=== PATIENT | female | born 1980 | race Two or more races ===

== ENCOUNTER → 2017-02-10 | Outpatient (CLI) | payer BC ==
[2017-02-10 18:13] LABS: ESTRADIOL LEVEL 76.3 pg/mL (.); FSH 7.7 mIU/mL (.)
== END | disposition home or self-care (01) ==
LOC: LAB 11:30
PROVIDERS: ATTEND Obstetrics & Gynecology Reproductive Endocrinology
DX: Z31.41 Encounter for fertility testing (principal); E28.8 Other ovarian dysfunction
CPT/HCPCS: 36415; 82670; 83001

== ENCOUNTER 2018-03-21 09:06 | Emergency (ER) | payer BC ==
[2018-03-21 09:10] VITALS: BP 108/69
--- NOTE | 2018-03-21 09:32 | PHYS DOC ---
Adult General Chief Complaint Chief Complaint: RING REMOVAL HPI HPI 37-year-old female patient states she had her newborn1 week ago and wore 2 rings in her left ring finger to take some pictures. Patient states she did not use the rings for a long time and did not realize that they are getting small for her and had problem with moving her rings and complaining of swelling of her finger. Review of Systems Review of Systems Constitutional: Denies fever or chills [] Eyes: Denies change in visual acuity, redness, or eye pain [] HENT: Denies nasal congestion or sore throat [] Respiratory: Denies cough or shortness of breath [] Cardiovascular: No additional information not addressed in HPI [] GI: Denies abdominal pain, nausea, vomiting, bloody stools or diarrhea [] : Denies dysuria or hematuria [] Musculoskeletal: Denies back pain, reports extremity pain Integument: Denies rash or skin lesions [] Neurologic: Denies headache, focal weakness or sensory changes [] Endocrine: Denies polyuria or polydipsia [] All other systems were reviewed and found to be within normal limits, except as documented in this note. Physical Exam Physical Exam Constitutional: Well developed, well nourished, mild distress, non-toxic appearance. [] HENT: Normocephalic, atraumatic Eyes: PERRLA, EOMI, conjunctiva normal, no discharge. [] Neck: Normal range of motion, no tenderness, supple, no stridor. [] Cardiovascular:Heart rate regular rhythm, no murmur [] Lungs & Thorax: Bilateral breath sounds clear to auscultation [] Extremities: 2 very tide rings in left ring finger with moderate edema of finger without neurovascular deficit Neurologic: Alert and oriented X 3, normal motor function, normal sensory function, no focal deficits noted. [] Psychologic: Affect normal, judgement normal, mood normal. [] EKG EKG [] Radiology/Procedures Radiology/Procedures [] Course & Med Decision Making Course & Med Decision Making Patient presented to ER with stuck rings in her finger. 2 rings was cut in 2 with electrical ring cutter and removed and patient felt better. Patient still had finger edema and instructed to elevate her finger and apply ice. Dragon Disclaimer Dragon Disclaimer This electronic medical record was generated, in whole or in part, using a voice recognition dictation system. Departure Departure: Impression: Primary Impression: Constriction ring of upper extremity Disposition: HOME, SELF-CARE (At 0929) Condition: IMPROVED Referrals: JEWELL GARCIA MD (PCP) Patient Instructions: Contusion Additional Instructions: Apply ice on the affected area Follow-up with your primary care physician in 3-5 days Return to ER if not getting better KADE FUENTES MD March 21, 2018 09:32
== END 2018-03-21 09:32 | disposition home or self-care (01) ==
LOC: ER 09:06
DX: O90.89 Other complications of the puerperium, not elsewhere classified (principal); S60.455A Superficial foreign body of left ring finger, initial encounter; X58.XXXA Exposure to other specified factors, initial encounter; Y93.89 Activity, other specified; Y99.8 Other external cause status; Y92.89 Other specified places as the place of occurrence of the external cause
CPT/HCPCS: 99284